=== PATIENT | female | born 1990 | race Caucasian/White ===

== ENCOUNTER 2024-01-16 19:16 | Emergency (ER) | payer OTHER, MEDICAID, SELFPAY ==
[2024-01-16 19:23] VITALS: BP 123/84; PULSE 90; RESP 18; TEMP 37.1; O2SAT 99; BMI 27.4
[2024-01-16 19:51] LABS: Strep Grp A by PCR Rapid Negative (Negative)
--- NOTE | 2024-01-16 20:25 | ED_ITS ---
HPI - General Adult General Chief complaint: Upper Respiratory Symptoms Stated complaint: sore throat, rt ear- can't hear Time Seen by Provider: 01/16/24 20:20 Source: patient Mode of arrival: Ambulatory History of Present Illness HPI narrative: 33-year-old female who is here for evaluation of several days of a sore throat, fullness in her right ear, right ear pain. No sinus congestion. Has had a persistent cough. No fevers. Related Data Allergies Allergy/AdvReac Type Severity Reaction Status Date / Time gabapentin Allergy Vomiting Verified 01/16/24 19:23 hydrocodone Allergy Rash Verified 01/16/24 19:23 Review of Systems Constitutional Constitutional: Reports system reviewed and no additional complaints, except as documented ENT Ears, Nose, Mouth, and Throat: Reports system reviewed and no additional complaints, except as documented Respiratory Respiratory: Reports system reviewed and no additional complaints, except as documented Integumentary/Breasts Skin/Breast: Reports system reviewed and no additional complaints, except as documented Patient History Social History Smoking Status: Current every day smoker Smoking Status: Current every day smoker tobacco type: cigarettes Substance Use Type: marijuana Exam Initial Vital Signs Initial Vital Signs: Vital Signs Temperature 98.7 F 01/16/24 19:23 Pulse Rate 90 01/16/24 19:23 Respiratory Rate 18 01/16/24 19:23 Blood Pressure 123/84 01/16/24 19:23 Pulse Oximetry 99 01/16/24 19:23 Oxygen Delivery Method Room Air 01/16/24 19:23 Const General: cooperative, comfortable and No ill appearing HENMT Ears: TM abnormal bulging bilaterally, dull bilaterally and with fluid behind the TM bilaterally; not erythematous Mouth: moist mucous membranes Throat: posterior oropharynx normal and uvula midline Resp Effort & Inspection: normal respiratory effort Skin General: no rashes or lesions noted Neuro General: patient alert, patient awake and moves all extremities Course Orders Ordered: ED Orders 01/16/24 19:30 Strep Grp A by PCR Rapid Stat Throat Culture Stat Vital Signs Vital signs: Vital Signs - 8 hr 01/16/24 19:23 01/16/24 20:32 Temperature 98.7 F Pulse Rate 90 89 Respiratory Rate 18 16 Blood Pressure 123/84 110/65 Pulse Oximetry 99 99 Oxygen Delivery Method Room Air Room Air Medical Decision Making Lab Data Lab results reviewed: Yes I reviewed the patient's lab results. Labs: Lab Results 01/16/24 Range/Units 19:30 Group A Strep (PCR) Negative (Negative) MDM Narrative Medical decision making narrative: Rapid strep is negative. She does have bulging bilateral tympanic membranes with right being greater than left however there was no erythema. Lungs are clear. Low suspicion for pneumonia. Based on her presentation today I suspect that the serous otitis media is because of an upper respiratory infection. Most likely viral. No indication for antibiotics. No signs of tympanic membrane rupture. We did discuss decongestants and antihistamines. Recommend trying that for now. Patient was given return precautions. She expressed understand ing and agreement. Discharge Plan Departure Patient Disposition: Home Clinical Impression: Sore throat, Otitis media Instructions: Sore Throat Activity Restrictions/Additional Instructions: New recommend that you use topical sore throat medication such as Chloraseptic sprays and Cepacol drops. You can purchase this [id number]. I would also recommend antihistamine such as Claritin or Zyrtec. Generic versions of these medications as appropriate. Can also try Flonase or Nasonex. Return to the emergency department for new symptoms. Referrals: Marion Godinez MD [Primary Care Provider] - Stand Alone Forms: Patient Portal/API
[2024-01-16 20:32] VITALS: BP 110/65; PULSE 89; RESP 16; O2SAT 99
== END 2024-01-16 20:33 | disposition home or self-care (01) ==
PROVIDERS: Emergency Provider Emergency Medicine; Family Provider Family Medicine; PCP Family Medicine
DX: J02.9 Acute pharyngitis, unspecified (principal); H66.91 Otitis media, unspecified, right ear
CPT/HCPCS: 87070; 87651; 99281; 99282